=== PATIENT | female | born 1945 | race Caucasian/White ===

== ENCOUNTER → 2018-04-28 | Outpatient (CLI) | payer MEDICARE ==
[2018-04-28 15:38] LABS: CALCIUM 9.5 mg/dL (8.4-10.2); CREATININE, serum 0.9 mg/dL (0.52-1.25); POTASSIUM 4.9 mmol/L (3.4-5.0)
== END ==
LOC: ZCOL.LAB 15:14
PROVIDERS: Family Medicine
DX: E11.8 Type 2 diabetes mellitus with unspecified complications (principal); I10 Essential (primary) hypertension; N17.9 Acute kidney failure, unspecified

== ENCOUNTER → 2018-05-06 | Outpatient (CLI) | payer MEDICARE | LOC: COL.RAD 13:40 | DX: R47.02 Dysphasia (principal); R05 Cough ==